=== PATIENT | female | born 1955 ===

== ENCOUNTER 2023-07-01 14:35 | Day surgery (SDC) | payer OTHER ==
[~2023-07-01] VITALS: Ht 160 cm; Wt 97.5 kg
[2023-07-01] MEDS ORDERED: SYNTHROID 0.10.15 MG PO (15:16)
[2023-07-01] MEDS ORDERED: PRINIVIL10 MG PO (15:17)
[2023-07-01] MEDS ORDERED: OMNICEF 300MG300 MG PO (15:18)
[2023-07-01] MEDS ORDERED: FLOMAX 0.40.4 MG/CAP PO (15:19)
[2023-07-01] MEDS ORDERED: TORADOL 10MG TA10 MG PO (15:19)
[2023-07-01] MEDS ORDERED: LR 1,000 ML IV ONE (15:30)
[2023-07-01 15:49] VITALS: BP 140/69; PULSE 105; TEMP 98.6
[2023-07-01] MEDS ORDERED: droPERidol 2.5 MG/ML 2 ML VIAL IV PRN (17:00)
[2023-07-01] MEDS ORDERED: hydrALAZINE 20 MG/ML 1 ML VIAL IV PRN (17:00)
[2023-07-01] MEDS ORDERED: fentaNYL 50 MCG/ML 2 ML VIAL IV PRN (17:00)
[2023-07-01] MEDS ORDERED: Promethazine 25 MG/ML 1 ML VIAL IV PRN (17:00)
[2023-07-01] MEDS ORDERED: HYDROmorphone 2 MG/1 ML VIAL IV PRN (17:00)
[2023-07-01] MEDS ORDERED: Ondansetron 4 MG/2 ML VIAL IV PRN (17:00)
[2023-07-01] MEDS ORDERED: Ketorolac 30 MG/ML VIAL ONE (17:01)
[2023-07-01] MEDS ORDERED: Lidocaine PF 2% (20 MG/ML) 5 ML VIAL ONE (17:01)
[2023-07-01] MEDS ORDERED: NS 10 ML IV ONE (17:01)
[2023-07-01] MEDS ORDERED: dexAMETHasone 10 MG/ML VIAL ONE (17:01)
[2023-07-01] MEDS ORDERED: Ondansetron 4 MG/2 ML VIAL ONE (17:01)
[2023-07-01] MEDS ORDERED: fentaNYL 50 MCG/ML 2 ML VIAL ONE (17:01)
[2023-07-01] MEDS ORDERED: ePHEDrine 50 MG/ML VIAL ONE (17:52)
[2023-07-01] MEDS ORDERED: Lidocaine 2% (20 MG/ML) 20 ML UROJET UR ONE (18:04)
[2023-07-01] MEDS ORDERED: Hyoscyamine 0.125 MG Sublingual TAB SL PRN (18:15)
[2023-07-01] MEDS ORDERED: oxyCODONE/Acetaminophen 5-325 MG TAB PO PRN (18:15)
[2023-07-01] MEDS ORDERED: Ketorolac 15 MG/ML VIAL IV PRN (18:15)
[2023-07-01 19:00] VITALS: BP 118/69; PULSE 73; TEMP 100
--- NOTE | 2023-07-01 19:00 | NUR ---
pt arrived to room 343 from PACU per bed, alert and oriented, VSS on RA. IVF infusing per piv in rt wrist, no c/o pain. pt provided water, jello and crackers. oriented to room, floor and poc, med rec and allergies reviewed. at bedside.
[2023-07-01 19:15] VITALS: BP 120/70; PULSE 72
[2023-07-01 19:45] VITALS: BP 135/79; PULSE 71
[2023-07-01 20:00] VITALS: BP 129/83; PULSE 74; TEMP 98
--- NOTE | 2023-07-01 20:10 | NUR ---
PT UP TO RESTROOM TO VOID FOR THE FIRST TIME, AMBULATED W SBA, URINE DARK RED, NO VISABLE CLOTS.
[2023-07-01 20:30] VITALS: BP 145/86; PULSE 75
--- NOTE | 2023-07-01 20:50 | NUR ---
pt has been up and voided, tolerating diet w/o N/V, VSS. discharge instructions given to pt and spouse, IV dc'd. pt discharged home with spouse. no questions/concerns at this time.
== END 2023-07-01 21:00 | disposition home or self-care (01) ==
LOC: SDCO 14:35 → SURG 19:00 → SDCO 21:00
DX: N20.1 Calculus of ureter (principal); I10 Essential (primary) hypertension; E11.9 Type 2 diabetes mellitus without complications
CPT/HCPCS: OP; C1769; C2617; J0690; J1100; J1885; J2405; J2704; J3010; J7120